=== PATIENT | female | born 1955 | race Caucasian/White ===

== ENCOUNTER 2018-09-24 09:44 | Day surgery (SDC) | payer OTHER ==
[~2018-09-24] VITALS: Ht 162.6 cm; Wt 80.5 kg
[~2018-09-24 09:44] MED LIST: ALPR.25 PO; ATEN25; ATOR10 PO; BUSP10; HYDACE5 PO; IBUP800 PO; LEVSOD125 PO; LEVSOD75 PO; LEVSOD88; Loradamed10 MG PO; META400 PO; METO100ER PO; METOPROL PO; MILN100T PO; MONT10T PO; ONDA4ODT MM; Omeprazole20 M1; VENL150ER PO; VENL75ER PO; [UNRECOGNIZED DRUG - REMARK]
== END 2018-09-24 12:00 | disposition home or self-care (01) ==
LOC: ORSCSDS 09:44
PROVIDERS: Internal Medicine Gastroenterology
PROC: 0DBP8ZX Excision of Rectum, Via Natural or Artificial Opening Endoscopic, Diagnostic (ICD-10-PCS; principal; 2018-09-24 11:00)
PROC: 0DBM8ZX Excision of Descending Colon, Via Natural or Artificial Opening Endoscopic, Diagnostic (ICD-10-PCS; principal; 2018-09-24 11:00)
DX: Z12.11 Encounter for screening for malignant neoplasm of colon (principal); Z86.010 Personal history of colon polyps; D12.4 Benign neoplasm of descending colon; D12.8 Benign neoplasm of rectum; K57.30 Diverticulosis of large intestine without perforation or abscess without bleeding; K64.8 Other hemorrhoids; I10 Essential (primary) hypertension; G47.33 Obstructive sleep apnea (adult) (pediatric); E05.00 Thyrotoxicosis with diffuse goiter without thyrotoxic crisis or storm; E78.5 Hyperlipidemia, unspecified; Z79.899 Other long term (current) drug therapy
CPT/HCPCS: 88305; J2704; J7120

== ENCOUNTER 2018-11-16 10:03 | Emergency (ER) | payer OTHER ==
[~2018-11-16] VITALS: Ht 162.6 cm; Wt 81.7 kg
[2018-11-16 11:06] LABS: BASOPHILS ABSOLUTE AUTO 0.06 K/mm3 (0.00-0.23); BASOPHILS PERCENT AUTO 1 % (0-2); EOSINOPHILS ABSOLUTE AUTO 0.07 K/mm3 (0.00-0.68); EOSINOPHILS PERCENT AUTO 1 % (0-6); Hematocrit 43.8 % (33.0-51.0); Hemoglobin 14.6 g/dL (11.5-16.0); IMMATURE GRAN ABSOLUTE AUTO 0.01 K/mm3 (0.00-0.10); IMMATURE GRAN PERCENT AUTO 0 % (0-1); LYMPHOCYTES ABSOLUTE AUTO 1.51 K/mm3 (0.84-5.20); LYMPHOCYTES PERCENT AUTO 23 % (21-46); MONOCYTES ABSOLUTE AUTO 0.46 K/mm3 (0.16-1.47); MONOCYTES PERCENT AUTO 7 % (4-13); Mean Corpuscular HGB 31.3 pg (26.0-34.0); Mean Corpuscular HGB Conc 33.3 g/dL (31.5-36.5); Mean Corpuscular Volume 94 fL (80-100); Mean Platelet Volume 9.6 fL (9.1-12.4); NEUTROPHILS ABSOLUTE AUTO 4.42 K/mm3 (1.96-9.15); NEUTROPHILS PERCENT AUTO 68 % (41-73); Platelet Count 218 K/mm3 (150-400); RDW Coefficient Variation 12.6 % (11.7-14.2); RDW Standard Deviation 43.4 fL (35.1-46.3); Red Blood Cell Count 4.66 M/mm3 (3.80-5.20); White Blood Cell Count 6.53 K/mm3 (4.00-11.30)
[2018-11-16 11:42] LABS: Alanine Aminotransfer (ALT/SGP 38 U/L (12-78); Albumin/Globulin Ratio 1.2 (0.8-1.8); Alk Phos 103 U/L (50-136); Anion Gap 7 mmol/L (6-16); Aspartate Aminotrans (AST/SGOT 14 U/L (12-37); Bilirubin, Total 0.4 mg/dL (0.1-1.0); Blood Urea Nitrogen 9 mg/dL (8-24); Bun/Creatinine Ratio 12.4 (12.0-20.0); CO2, Blood 26 mmol/L (21-32); Chloride, Blood 108 mmol/L (98-108); Creatinine, Blood 0.72 mg/dL (0.40-1.00); Globulin, Blood 3.3 g/dL (2.2-4.0); Glomerular Filtration Rate >60 (60-); Glucose, Blood 106 mg/dL (70-99); Potassium, Blood 3.8 mmol/L (3.5-5.5); Sodium, Blood 141 mmol/L (136-145); Total Protein, Blood 7.3 g/dL (6.4-8.2)
== END 2018-11-16 12:36 | disposition home or self-care (01) ==
LOC: ER 10:03
PROVIDERS: Emergency Medicine
DX: R10.11 Right upper quadrant pain (principal); Z79.899 Other long term (current) drug therapy
CPT/HCPCS: 36415; 76705; 80053; 83690; 85025; 99284-25

== ENCOUNTER 2022-06-25 12:50 | Day surgery (SDC) | payer OTHER ==
[~2022-06-25] VITALS: Ht 162.6 cm; Wt 87.4 kg
[2022-06-25] MEDS ORDERED: ASPI81CH (13:01)
== END 2022-06-25 14:25 | disposition home or self-care (01) ==
LOC: ORSCSDS 12:50
PROVIDERS: Student in an Organized Health Care Education/Training Program
PROC: 0DBN8ZX Excision of Sigmoid Colon, Via Natural or Artificial Opening Endoscopic, Diagnostic (ICD-10-PCS; principal; 2022-06-25 15:15)
DX: Z12.11 Encounter for screening for malignant neoplasm of colon (principal); Z86.010 Personal history of colon polyps; K63.5 Polyp of colon; K57.30 Diverticulosis of large intestine without perforation or abscess without bleeding; G40.909 Epilepsy, unspecified, not intractable, without status epilepticus; G47.33 Obstructive sleep apnea (adult) (pediatric); K63.89 Other specified diseases of intestine; E78.5 Hyperlipidemia, unspecified; K75.81 Nonalcoholic steatohepatitis (NASH); E03.9 Hypothyroidism, unspecified; I10 Essential (primary) hypertension; Z79.899 Other long term (current) drug therapy
CPT/HCPCS: 88305; J0330; J0461; J2405; J2704; J7120; Q9968

== ENCOUNTER → 2023-05-07 | Outpatient (CLI) | payer MEDICARE ==
[~2023-05-07] MED LIST changes: +ASPI81CH
== END ==
LOC: LAB SHORT 11:33 → LAB 11:33
DX: L82.0 Inflamed seborrheic keratosis (principal); L57.0 Actinic keratosis
CPT/HCPCS: 88305

== ENCOUNTER 2024-07-13 07:25 | Day surgery (SDC) | payer OTHER ==
[2024-07-13] VITALS (11 sets, daily range): BP systolic 113–151; BP diastolic 57–78
[~2024-07-13] VITALS: Ht 162.6 cm; Wt 86.5 kg
[~2024-07-13 07:25] MED LIST changes: -ASPI81CH; +ASPI81CH PO; -ATOR10 PO; +ATOR20 PO; +CETI5 PO; +Loratadine10 MG PO; +NASONEX 24HR AL17 ML; +OMEP20ER PO; -Omeprazole20 M1; +VITAMIN D5000 UNIT PO
[2024-07-13] MEDS ORDERED: CeFAZolin Sodium 2,000 MG in NS 100 ML IV SCH (07:45)
[2024-07-13] MEDS ORDERED: Lactated Ringer's 1,000 ML IV SCH (07:45)
[2024-07-13] MEDS ORDERED: CeFAZolin Sodium 2,000 MG VIAL ONE (07:49)
--- NOTE | 2024-07-13 08:10 | NUR ---
Ambulatory in Day Surgery History, Chart, Medications and Allergies reviewed before start of procedure. Pre-Op teaching done. Pt verbalizes understanding. Patient States Post-Procedure ride home has been arranged.
[2024-07-13] MEDS ORDERED: Midazolam HCl 1MG / ML 2ML Vial ONE (08:39)
[2024-07-13] MEDS ORDERED: FentaNYL Citrate 50 MCG/ML 2 ML Injection ONE (08:39)
[2024-07-13] MEDS ORDERED: propofoL 20 ML IV ONE (08:42)
[2024-07-13] MEDS ORDERED: Rocuronium Bromide 10 MG/ML 5ML Injection IV ONE (08:42)
[2024-07-13] MEDS ORDERED: Ondansetron HCl 2 MG / ML 2ML Vial ONE (08:51)
[2024-07-13] MEDS ORDERED: Dexamethasone Sod Phos 10 MG/ML 1ML VIAL ONE (08:51)
[2024-07-13] MEDS ORDERED: Bupivacaine 0.5% HCl 5 MG/ML 30MLVIAL ONE (08:51)
[2024-07-13] MEDS ORDERED: HYDROmorphone HCl/Pf 1MG SYR IV PRN ×2 (09:15)
[2024-07-13] MEDS ORDERED: Droperidol 5 mg/2 ml Vial IV PRN (09:15)
[2024-07-13] MEDS ORDERED: Labetalol HCL 5 MG/ML 4ML Injection (Single Dose) IV PRN (09:15)
[2024-07-13] MEDS ORDERED: Ondansetron HCl 2 MG / ML 2ML Vial IV PRN (09:15)
[2024-07-13] MEDS ORDERED: FentaNYL Citrate 50 MCG/ML 2 ML Injection IV PRN ×2 (09:15→09:20)
[2024-07-13] MEDS ORDERED: Phenylephrine HCl 100 MCG/ML-NS 10MLSYR (1MG/10ML) ONE (09:31)
[2024-07-13] MEDS ORDERED: Sugammadex Sodium 200 MG/2ML SDV (100 MG/ML) ONE (09:37)
[2024-07-13] MEDS ORDERED: HYDROcodone 5-APAP 325 TAB PO PRN (09:55)
[2024-07-13] MEDS ORDERED: Ketorolac Tromethamine 30mg Vial ONE ×2 (10:11→10:15)
--- NOTE | 2024-07-13 11:32 | NUR ---
DISCHARGE PT A&OX4/VSS/RA, PAIN MANAGED WITH 1 NORCO TAB, DENIES NAUSEA/MUNA PO CRACKER AND H20, IV DC'D, DC INS PROVIDED TO PT AND , LEFT VIA WC WITH ALL PERSONAL POSSESSIONS INCLUDING DC INS/NORCO SCRIPT TO GO HOME WITH .
== END 2024-07-13 23:01 | disposition home or self-care (01) ==
LOC: ORSCMMR 07:25 → ORD 07:30 → ORSCMMR 08:30 → ORD 08:30 → ORSCMMR 23:01
PROVIDERS: Surgery
PROC: 0JB70ZX Excision of Back Subcutaneous Tissue and Fascia, Open Approach, Diagnostic (ICD-10-PCS; principal; 2024-07-13 08:30)
DX: D21.6 Benign neoplasm of connective and other soft tissue of trunk, unspecified (principal); I10 Essential (primary) hypertension; G47.33 Obstructive sleep apnea (adult) (pediatric); E03.9 Hypothyroidism, unspecified; K75.81 Nonalcoholic steatohepatitis (NASH); Z79.899 Other long term (current) drug therapy; Z79.82 Long term (current) use of aspirin
CPT/HCPCS: 88304; A9270; J0690; J1100; J1790; J1885; J2250; J2371; J2405; J2704; J3010; J7120